=== PATIENT | male | born 1990 | race Caucasian/White ===

== ENCOUNTER 2017-03-20 21:03 | Emergency (ER) | payer BC, MEDICAID ==
[~2017-03-20] VITALS: Ht 180.3 cm; Wt 100.0 kg
[2017-03-20 21:05] VITALS: BP 142/89; PULSE 70; RESP 16; TEMP 98.3; O2SAT 99
[2017-03-20] MEDS ORDERED: ONDANSETRON HCL 4 MG/2 ML VIAL IV PUSH ONE (22:30)
--- NOTE | 2017-03-20 22:36 | PD ---
HPI Chief Complaint: GI Complaint Time Seen by Provider: 22:25 Travel History International Travel<30 days: No Contact w/Intl Traveler<30days: No Traveled to known affect area: No History of Present Illness HPI 26-year-old white male visiting from [place] presents to emergency department for evaluation of nausea vomiting over the past 5 days. He states that he had just come to [place] with his family on vacation. No one else has been sick. He states that he's been able to eat but vomits. He has an upset stomach. He denies any significant pain. No lower abdominal pain. He denies any fever or chills, cough, congestion, back pain, urinary symptoms or rashes. PFSH Past Medical History Medical History: Denies Significant Hx Tetanus Vaccination: < 5 Years Past Surgical History Surgical History: No Previous Surgery Social History Alcohol Use: Yes Tobacco Use: Yes Substance Use: No Allergies-Medications (Allergen,Severity, Reaction): Coded Allergies: No Known Allergies (Unverified , 03/20/17) Reported Meds & Prescriptions Reported Meds & Active Scripts Active Zofran Odt (Ondansetron Odt) 8 Mg Tab 8 Mg SL Q8H PRN Review of Systems General / Constitutional: No: Fever Eyes: No: Visual changes HENT: No: Headaches Cardiovascular: No: Chest Pain or Discomfort Respiratory: No: Shortness of Breath Gastrointestinal: Positive: Nausea, Vomiting, Diarrhea, No: Abdominal Pain Genitourinary: No: Frequency, Dysuria, Hematuria Musculoskeletal: No: Pain Skin: No Rash Neurologic: No: Weakness Psychiatric: No: Depression Endocrine: No: Polydipsia Hematologic/Lymphatic: No: Easy Bruising Physical Exam Narrative GENERAL: Well-developed, well-nourished in no apparent distress. Nontoxic appearing. HEAD: Normocephalic, atraumatic. EYES: Pupils equal round and reactive. Extraocular motions intact. No scleral icterus. No injection or drainage. ENT: Nose clear. Throat without erythema, tonsillar hypertrophy or exudate. Uvula midline. Airway patent. NECK: Trachea midline. Supple, nontender, moves head freely. No central bony tenderness or spasm. CARDIOVASCULAR: Regular rate and rhythm without murmurs, gallops, or rubs. RESPIRATORY: Clear to auscultation. Breath sounds equal bilaterally. No wheezes , rales, or rhonchi. GASTROINTESTINAL: Abdomen soft, non-tender, nondistended. No hepato-splenomegaly , or palpable masses. No guarding. EXTREMITIES: No clubbing, cyanosis, or edema. No joint tenderness. BACK: Nontender without deformity. No flank tenderness. NEUROLOGICAL: Awake, alert and oriented x 3 .Cranial nerves grossly intact. Motor and sensory grossly within normal limits. Normal speech. Data Data Last Documented VS Vital Signs Date Time Temp Pulse Resp B/P (MAP) Pulse Ox O2 Delivery O2 Flow Rate FiO2 03/20/17 21:05 98.3 70 16 142/89 (106) 99 Room Air Orders Orders Complete Blood Count With Diff (03/20/17 22:30) Comprehensive Metabolic Panel (03/20/17 22:30) Lipase (03/20/17 22:30) Iv Access Insert/Monitor (03/20/17 22:30) Ondansetron Inj (Zofran Inj) (03/20/17 22:30) C-Reactive Protein (Crp) (03/20/17 22:55) Ed Discharge Order (03/21/17 00:03) Labs Laboratory Tests Test 03/20/17 22:55 White Blood Count 9.0 TH/MM3 Red Blood Count 5.17 MIL/MM3 Hemoglobin 15.0 GM/DL Hematocrit 44.3 % Mean Corpuscular Volume 85.7 FL Mean Corpuscular Hemoglobin 28.9 PG Mean Corpuscular Hemoglobin Concent 33.8 % Red Cell Distribution Width 14.2 % Platelet Count 258 TH/MM3 Mean Platelet Volume 8.0 FL Neutrophils (%) (Auto) 59.8 % Lymphocytes (%) (Auto) 30.5 % Monocytes (%) (Auto) 5.5 % Eosinophils (%) (Auto) 3.3 % Basophils (%) (Auto) 0.9 % Neutrophils # (Auto) 5.4 TH/MM3 Lymphocytes # (Auto) 2.8 TH/MM3 Monocytes # (Auto) 0.5 TH/MM3 Eosinophils # (Auto) 0.3 TH/MM3 Basophils # (Auto) 0.1 TH/MM3 CBC Comment DIFF FINAL Differential Comment Blood Urea Nitrogen 16 MG/DL Creatinine 0.91 MG/DL Random Glucose 89 MG/DL Total Protein 6.8 GM/DL Albumin 3.7 GM/DL Calcium Level 8.6 MG/DL Alkaline Phosphatase 60 U/L Aspartate Amino Transf (AST/SGOT) 23 U/L Alanine Aminotransferase (ALT/SGPT) 48 U/L Total Bilirubin 0.5 MG/DL Sodium Level 140 MEQ/L Potassium Level 3.9 MEQ/L Chloride Level 107 MEQ/L Carbon Dioxide Level 26.1 MEQ/L Anion Gap 7 MEQ/L Estimat Glomerular Filtration Rate 101 ML/MIN C-Reactive Protein LESS THAN 0.29 MG/DL Lipase 136 U/L [facility] Medical Decision Making Medical Screen Exam Complete: Yes Emergency Medical Condition: Yes Medical Record Reviewed: Yes Interpretation(s) CBC & BMP Diagram 03/20/17 22:55 Total Protein 6.8, Albumin 3.7, Calcium Level 8.6, Alkaline Phosphatase 60, Aspartate Amino Transf (AST/SGOT) 23, Alanine Aminotransferase (ALT/SGPT) 48, Total Bilirubin 0.5 Lipase: Negative Differential Diagnosis MDM: High Differential diagnoses: Ruptured viscous, acute pancreatitis, diverticulitis, hepatitis, colitis, ischemic bowel, bowel instruction, nonspecific abdominal pain, gastroparesis, electrolyte abnormality, dehydration, drug-seeking, malingering Narrative Course IV access is obtained. Patient's given Zofran 8 mg IV. Routine laboratory tests for analysis. Patient is tolerating by mouth fluids without vomiting. He is feeling much better. This is vomiting Diagnosis Primary Impression: Vomiting Qualified Codes: R11.2 - Nausea with vomiting, unspecified Patient Instructions: General Instructions Additional Instructions: Rest. Increase fluids. Medications for nausea vomiting. Follow-up with a medical doctor next 2-3 days or return to the ER if any worsening or problems develop. Med/Other Pt SpecificInfo: Prescription(s) given Scripts Ondansetron Odt (Zofran Odt) 8 Mg Tab 8 MG SL Q8H Y for NAUSEA OR VOMITING, #10 TAB 0 Refills Prov: Karin Olmstead DO 03/21/17 Disposition: 01 DISCHARGE HOME Condition: Stable [place] Mar 20, 2017 22:35
[2017-03-20 23:18] LABS: AUTOMATED NEUTROPHIL # 5.4 TH/MM3 (1.8-7.7); BASOPHIL # 0.1 TH/MM3 (0-0.2); BASOPHIL % 0.9 % (0.0-2.0); EOSINOPHIL # 0.3 TH/MM3 (0-0.4); EOSINOPHIL % 3.3 % (0.0-4.0); HEMATOCRIT 44.3 % (39.0-51.0); LYMPH % 30.5 % (9.0-44.0); LYMPHOCYTE # 2.8 TH/MM3 (1.0-4.8); MEAN CELL VOLUME 85.7 FL (80.0-100.0); MEAN CORPUSCULAR HEMOGLOBIN 28.9 PG (27.0-34.0); MEAN CORPUSCULAR HGB CONC 33.8 % (32.0-36.0); MONO % 5.5 % (0.0-8.0); MONOCYTE # 0.5 TH/MM3 (0-0.9); NEUT % 59.8 % (16.0-70.0); PLATELET COUNT 258 TH/MM3 (150-450); RED BLOOD COUNT 5.17 MIL/MM3 (4.50-5.90); RED CELL DISTRIBUTION WIDTH 14.2 % (11.6-17.2)
[2017-03-20 23:49] LABS: ALT (GPT) 48 U/L (12-78); C-REACTIVE PROTEIN LESS THAN 0.29 MG/DL (0.00-0.30)
[2017-03-20 23:51] LABS: ALKALINE PHOSPHATASE 60 U/L (45-117); TOTAL BILIRUBIN ADULT 0.5 MG/DL (0.2-1.0); TOTAL PROTEIN 6.8 GM/DL (6.4-8.2)
[2017-03-20 23:55] LABS: ALBUMIN 3.7 GM/DL (3.4-5.0); AST (GOT) 23 U/L (15-37); BICARBONATE 26.1 MEQ/L (21.0-32.0); BLOOD UREA NITROGEN 16 MG/DL (7-18); CALCIUM 8.6 MG/DL (8.5-10.1); CHLORIDE 107 MEQ/L (98-107); CREATININE 0.91 MG/DL (0.60-1.30); GLOMERULAR FILTRATION RATE 101 ML/MIN (>89); GLUCOSE,RANDOM 89 MG/DL (74-106); LIPASE 136 U/L (73-393); SODIUM (NA) 140 MEQ/L (136-145)
[2017-03-21] MEDS ORDERED: ZOFR8TAB4 SL (00:04)
== END 2017-03-21 00:43 | disposition home or self-care (01) ==
LOC: NEPD 21:03
DX: R11.2 Nausea with vomiting, unspecified (principal); Z72.0 Tobacco use
CPT/HCPCS: 80053; 83690; 85025; 86140; 96374; 99284; J2405